=== PATIENT | male | born 1970 | race African-American/Black ===

== ENCOUNTER 2019-02-10 11:08 | Emergency (ER) | payer SELFPAY | END 2019-02-10 12:32 | disposition home or self-care (01) | LOC: ERS 11:08 | DX: L72.9 Follicular cyst of the skin and subcutaneous tissue, unspecified (principal); F41.9 Anxiety disorder, unspecified; F17.220 Nicotine dependence, chewing tobacco, uncomplicated | CPT/HCPCS: 99282 ==